=== PATIENT | male | born 1980 | race African-American/Black ===

== ENCOUNTER 2023-10-21 19:59 | Emergency (ER) | payer MEDICAID ==
[~2023-10-21] VITALS: Ht 177.8 cm; Wt 88.0 kg
[2023-10-21 20:05] VITALS: O2SAT 100
[2023-10-21 21:16] LABS: BASOPHILS % 1.2 % (0.0-2.0); DIFFERENTIAL COMMENT 0; HEMATOCRIT. 31.2 % (42.0-52.0); HEMOGLOBIN. 10.4 g/dL (14.0-18.0); MEAN CORPUSCULAR HEMOGLOBIN 35.3 pg (28.0-32.0); MEAN CORPUSCULAR HGB CONC 33.3 g/dL (31.0-37.0); MEAN PLATELET VOLUME 8.2 fl (7.4-10.4); MONOCYTES % 12.6 % (2.0-8.0); NEUTROPHILS % 53.2 % (40.0-76.0); PLATELET 144 x1000/uL (130-400); RED BLOOD CELL COUNT 2.94 mill/uL (4.7-6.1); RED CELL DISTRIBUTION WIDTH 16.8 % (11.6-14.6); WHITE BLOOD COUNT 5.8 x1000/uL (4.5-11.0)
[2023-10-21] MEDS: HYDROCODONE/ACETAMINOPHEN 5/325MG TABLET PO ONE (21:22)
[2023-10-21 21:25] VITALS: BP 120/63; PULSE 107; RESP 19; TEMP 97.8
[2023-10-21 21:27] LABS: CHLORIDE 111 mEq/L (98-107); POTASSIUM 3.3 mEq/L (3.5-5.1); SODIUM 144 mEq/L (136-145)
[2023-10-21 21:28] LABS: CALCIUM 8.3 mg/dL (8.7-10.4); CARBON DIOXIDE 25 mEq/L (21-32); INR 1.3; PARTIAL THROMBOPLASTIN TIME 30.9 sec (23.4-31.0)
[2023-10-21 21:33] LABS: CREATININE 0.9 mg/dL (0.6-1.3); GLUCOSE 124 mg/dL (70-105); UREA NITROGEN BLOOD 11 mg/dL (9-23)
[2023-10-21 21:34] LABS: TROPONIN I HIGH SENSITIVITY 6 ng/L (3.0-53)
[2023-10-21 21:35] LABS: ALANINE AMINOTRANSFERASE 88 IU/L (10-49); ALBUMIN 3.6 g/dL (3.2-4.8); ASPARTATE AMINOTRANSFERASE 214 IU/L (<34); BILIRUBIN DIRECT 0.6 mg/dL (<=3.0); BILIRUBIN TOTAL 0.8 mg/dL (0.1-1.0); PROTEIN TOTAL 6.7 g/dL (6.0-8.3)
[2023-10-21] MEDS ORDERED: FURO-151 MT (22:24)
[2023-10-21] MEDS: POTASSIUM CHLORIDE 20MEQ/PACKET PO ONE (23:08)
[2023-10-21] MEDS: FUROSEMIDE 40MG TABLET PO ONE (23:08)
[2023-10-21] MEDS: MAGNESIUM GLUCONATE 500MG TABLET PO SCH (23:08)
== END 2023-10-21 23:22 | disposition home or self-care (01) ==
LOC: ER 19:59
DX: R60.9 Edema, unspecified (principal); I50.9 Heart failure, unspecified
CPT/HCPCS: 36415; 71045; 80048; 80076; 83735; 83880; 84484; 85025; 99284

== ENCOUNTER 2023-10-22 02:52 | Emergency (ER) | payer MEDICAID, OTHER ==
[~2023-10-22] VITALS: Ht 177.8 cm; Wt 91.0 kg
[~2023-10-22 02:52] MED LIST: FURO-151 MT
[2023-10-22 02:56] VITALS: TEMP 98.6; O2SAT 94
[2023-10-22 03:31] LABS: HEMATOCRIT. 30.7 % (42.0-52.0); HEMOGLOBIN. 10.1 g/dL (14.0-18.0); MEAN CORPUSCULAR HGB CONC 32.9 g/dL (31.0-37.0); MEAN CORPUSCULAR VOLUME 106.3 fL (80.0-94.0); MEAN PLATELET VOLUME 8.3 fl (7.4-10.4); PLATELET 122 x1000/uL (130-400); RED BLOOD CELL COUNT 2.89 mill/uL (4.7-6.1); RED CELL DISTRIBUTION WIDTH 16.7 % (11.6-14.6); WHITE BLOOD COUNT 5.5 x1000/uL (4.5-11.0)
[2023-10-22 03:34] LABS: DIFFERENTIAL COMMENT 1
[2023-10-22 03:40] LABS: CHLORIDE 107 mEq/L (98-107); POTASSIUM 3.1 mEq/L (3.5-5.1); SODIUM 144 mEq/L (136-145)
[2023-10-22 03:41] LABS: CALCIUM 8.1 mg/dL (8.7-10.4); CARBON DIOXIDE 27 mEq/L (21-32)
[2023-10-22 03:46] LABS: CREATININE 0.8 mg/dL (0.6-1.3); GLUCOSE 114 mg/dL (70-105); UREA NITROGEN BLOOD 10 mg/dL (9-23)
[2023-10-22 03:47] LABS: ETHANOL BLOOD 300 mg/dL (<10)
[2023-10-22 03:48] LABS: ALANINE AMINOTRANSFERASE 79 IU/L (10-49); ALBUMIN 3.5 g/dL (3.2-4.8); ASPARTATE AMINOTRANSFERASE 207 IU/L (<34); BILIRUBIN DIRECT 0.5 mg/dL (<=3.0); BILIRUBIN TOTAL 0.9 mg/dL (0.1-1.0); PROTEIN TOTAL 6.3 g/dL (6.0-8.3)
[2023-10-22 03:53] LABS: ATYPICAL LYMPHOCYTES 1
[2023-10-22 03:54] LABS: OVALOCYTES 1+; PLATELET ESTIMATE NORMAL; TARGET CELLS 2+; TEAR DROP CELLS 1+
[2023-10-22 06:02] LABS: TROPONIN I HIGH SENSITIVITY 5 ng/L (3.0-53)
[2023-10-22 06:18] VITALS: BP 138/83; PULSE 100; RESP 18
== END 2023-10-22 06:41 | disposition short-term general hospital (02) ==
LOC: ER 02:52
DX: F10.129 Alcohol abuse with intoxication, unspecified (principal); R60.0 Localized edema; I11.0 Hypertensive heart disease with heart failure; I50.9 Heart failure, unspecified; Z00.00 Encounter for general adult medical examination without abnormal findings; Y90.8 Blood alcohol level of 240 mg/100 ml or more
CPT/HCPCS: 36415; 71045; 80048; 80076; 80320; 83880; 84484; 85025; 93005; 93970; 99285; G0480

== ENCOUNTER 2023-10-29 16:16 | Emergency (ER) | payer OTHER ==
[~2023-10-29] VITALS: Ht 177.8 cm; Wt 108.0 kg
[2023-10-29 16:27] VITALS: BP 124/90; PULSE 91; RESP 18; TEMP 97.7; O2SAT 98
[2023-10-29] MEDS ORDERED: MAGN64TA9 MT (16:37)
[2023-10-29] MEDS ORDERED: POTA-205 MT (16:37)
== END 2023-10-29 16:50 | disposition home or self-care (01) ==
LOC: ER 16:16
DX: S09.90XA Unspecified injury of head, initial encounter (principal); V79.60XA Unspecified bus occupant injured in collision with unspecified motor vehicles in traffic accident, initial encounter; E11.9 Type 2 diabetes mellitus without complications; I11.0 Hypertensive heart disease with heart failure; I50.9 Heart failure, unspecified; Y93.89 Activity, other specified; Y92.89 Other specified places as the place of occurrence of the external cause; Y99.8 Other external cause status
CPT/HCPCS: 99283

== ENCOUNTER 2023-11-19 20:41 | Emergency (ER) | payer OTHER ==
[~2023-11-19] VITALS: Ht 180.3 cm; Wt 90.0 kg
[~2023-11-19 20:41] MED LIST changes: +MAGN64TA9 MT; +POTA-205 MT
[2023-11-19 20:52] VITALS: O2SAT 98
[2023-11-19] MEDS ORDERED: KETOROLAC 30MG/ML VIAL IV STA (23:03)
[2023-11-20 00:09] LABS: BASOPHILS % 1.6 % (0.0-2.0); EOSINOPHILS % 0.2 % (0.0-5.0); HEMATOCRIT. 26.3 % (42.0-52.0); HEMOGLOBIN. 8.8 g/dL (14.0-18.0); LYMPHOCYTES % 38.3 % (20.0-50.0); MEAN CORPUSCULAR HEMOGLOBIN 32.4 pg (28.0-32.0); MEAN CORPUSCULAR HGB CONC 33.4 g/dL (31.0-37.0); MEAN PLATELET VOLUME 8.2 fl (7.4-10.4); MONOCYTES % 9.6 % (2.0-8.0); NEUTROPHILS % 50.3 % (40.0-76.0); PLATELET 184 x1000/uL (130-400); RED BLOOD CELL COUNT 2.71 mill/uL (4.7-6.1); RED CELL DISTRIBUTION WIDTH 18.5 % (11.6-14.6); WHITE BLOOD COUNT 7.7 x1000/uL (4.5-11.0)
[2023-11-20 00:19] LABS: CHLORIDE 107 mEq/L (98-107); POTASSIUM 3.9 mEq/L (3.5-5.1); SODIUM 142 mEq/L (136-145)
[2023-11-20 00:20] LABS: CALCIUM 8.1 mg/dL (8.7-10.4); CARBON DIOXIDE 21 mEq/L (21-32)
[2023-11-20 00:25] LABS: CREATININE 0.6 mg/dL (0.6-1.3); GLUCOSE 87 mg/dL (70-105); UREA NITROGEN BLOOD 10 mg/dL (9-23)
[2023-11-20] MEDS: KETOROLAC 30MG/ML VIAL IV NR (00:45)
[2023-11-20] MEDS ORDERED: IBUP-2029 MT (03:03)
[2023-11-20 04:40] VITALS: BP 117/69; PULSE 78; RESP 16; TEMP 36.89184; O2SAT 98
== END 2023-11-20 04:20 | disposition home or self-care (01) ==
LOC: ER 20:41
DX: S00.83XA Contusion of other part of head, initial encounter (principal); D53.9 Nutritional anemia, unspecified; I11.0 Hypertensive heart disease with heart failure; E11.9 Type 2 diabetes mellitus without complications; I50.9 Heart failure, unspecified; F19.90 Other psychoactive substance use, unspecified, uncomplicated; F10.20 Alcohol dependence, uncomplicated; W18.39XA Other fall on same level, initial encounter; Y93.89 Activity, other specified; Y92.89 Other specified places as the place of occurrence of the external cause; Y99.8 Other external cause status; Y90.9 Presence of alcohol in blood, level not specified
CPT/HCPCS: 99285; 80048; 85025; 36415; 93005; 70450; 96374; 70486; J1885